=== PATIENT | female | born 1950 | race African-American/Black ===

== ENCOUNTER → 2017-04-06 | Outpatient (CLI) | payer OTHER ==
[~2017-04-06] MED LIST: AMLODIPINE BESY10 MG PO; ASPIRIN ENTERI325 M1 PO; CALCIUM 5001 TAB PO; COD LIVER OIL1 CAP PO; CORAL CALCIUM PO; CYANOCOBALAM1000 MCG PO; FLAX SEED OIL1000 M1 PO; HYDROCHLOROTHIA25 MG PO; IBUPROFEN800 MG PO; K-DUR20 ME2 PO; KCL PO; LEVOTHYROXINE112 MCG PO; MAG-OX 400400 M1 PO; MAGNESIUM250 M1 PO; MIRALAX17 GM PO; MULTIPLE VITAM1 EAC1 PO; SENOKOT S1 TA1 PO; SYNTHROID112 MCG PO; TRAMADOL HCL50 M2 PO; ULTRAM PO; VITAMIN B122500 MC1; VITAMIN D32000 UNI1 PO; VITAMIN D400 UNI2 PO; VOLTAREN75 MG PO; [UNRECOGNIZED DRUG - OTHER] PO
--- NOTE | ~2017-04-06 | CR63 ---
[facility] A Service of [facility] RADIOLOGY TEXT RESULTS PATIENT: JAE NIETO LOCATION: [facility] : [birth year] UNIT #: [id number] AGE: [address]: Edgar Valdovinos MD SEX: F ORDER DR: [id number] [facility] [address] [place], [place] [address] [id number] O MR#: [id number] Acc #: [id number] NAME: JAE NIETO : 1950 SEX: F STUDY DATE/TIME: 04/06/2017 1035 UNIT: [facility] ROOM: STUDY DESCRIPTION: CR Chest 2 View Attending Physician: Edgar Valdovinos M.D. Ordering Physician: Edgar Valdovinos M.D. Primary Care Physician: Tyrone Perez M.D. MEDICAL IMAGING REPORT This report is preliminary unless electronic signature is present EXAM Chest 2 views 04/06 17:10 1035 hours CLINICAL HISTORY 66-year-old for preop evaluation prior to right knee surgery. History of hypertension. COMPARISON 03/31/2016 FINDINGS Upright PA and lateral views of the chest demonstrate mild prominence of the cardiac silhouette with left heart enlargement. This is unchanged. Stable tortuous aorta. The lungs are clear and there are no effusions. IMPRESSION Mild cardiac enlargement unchanged from 03/31/2016. The lungs are clear and there are no effusions. Dictated by... Aurora Lang M.D. THIS IS AN ELECTRONICALLY VERIFIED REPORT Aurora Lang M.D. at 04/07/2017 9:27 AM Jame TD: 04/06/2017 17:57 JOB #: [id number] MEDICAL IMAGING REPORT Page 1 of 1 COPY
--- NOTE | ~2017-04-06 | CO ---
Unit #: [id number] #: [id number] Patient: JAE NIETO [id number] [address] [place], [place] [address] [id number] O MR#: [id number] NAME: JAE NIETO ROOM: Age: 66 Sex: F Admission Date: 04/06/2017 : 1950 Attending Physician: Edgar Valdovinos M.D. Primary Care Physician: Tyrone Perez M.D. Consultation Date: 04/06/2017 CONSULTATION REPORT REASON FOR CONSULTATION Preoperative medical evaluation prior to right total knee arthroplasty scheduled by Dr. Valdovinos for 04/18/17. HISTORY OF PRESENT ILLNESS The patient is a 66-year-old female who presents to preprocedural screening for the reason as indicated above. She reports having right knee swelling and "snapping," as well as sciatic pain secondary to uneven gait. She denies fever, chills. Denies chest, arm, neck, jaw or back pain or pressure. No shortness of air. No PND, dyspnea on exertion. No lightheadedness, dizziness, syncope, pre-syncope. No known history of obstructive sleep apnea. Denies history of myocardial infarction, congestive heart failure, TIA, CVA, diabetes or renal conditions. She does not see a materials clerk. She states she had a stress test performed approximately 30 years ago, and it was normal at that time. She has not been referred for further cardiology evaluation. She uses a cane when going up or down stairs to offer stability but does not need to use it when ambulating on flat ground. She has been evaluated by Dr. Valdovinos and scheduled for the above referenced procedure. PAST MEDICAL HISTORY 1. Osteoarthritis. 2. Hypertension. 3. Hypothyroidism. 4. Lactose intolerance. 5. History of diverticulitis and benign colon polyp removal per patient report. 6. Occasional tingling in fingers. 7. Health maintenance - Last dental visit was approximately 1 1/2 years ago. PAST SURGICAL HISTORY 1. Tubal ligation. 2. Hysterectomy. 3. Bilateral bunionectomy. 4. Left total knee arthroplasty. NOTE: The patient denies a personal or family history of complications to anesthesia. ALLERGIES No known drug allergies. Denies latex allergies. CURRENT MEDICATIONS Unit #: [id number] #: [id number] Patient: JAE NIETO 1. Hydrochlorothiazide 25 mg p.o. every morning. 2. Amlodipine besylate 10 mg p.o. every morning. 3. Diclofenac sodium EC 75 mg p.o. daily p.r.n. pain. 4. Multivitamin 1 tab p.o. daily. 5. Vitamin D3 - 2,000 unit tab p.o. daily, on hold. 6. Coral calcium capsule 1 cap p.o. daily. 7. Synthroid 112 mcg p.o. every morning. 8. Klor-Con 10 mEq p.o. every morning. 9. Magnesium 250 mg p.o. daily, on hold. 10. MiraLAX 17 grams p.o. dissolved in 8 ounces of water at bedtime. SOCIAL HISTORY Denies tobacco use. Drinks an ounce of bourbon on the weekends. Denies illicit drug use. FAMILY HISTORY Per review of Dr. Valdovinos's office note, mother had cancer. REVIEW OF SYSTEMS Patient reports 1 to 2+ bilateral lower extremity edema, somewhat relieved with elevation of extremities at night. A 10-point review of systems was conducted and otherwise negative except as indicated under history of present illness above. PHYSICAL EXAMINATION GENERAL: A 66-year-old female. Awake, alert, in no acute distress. VITAL SIGNS: Temperature 98.4, heart rate 62, respiratory rate 20, blood pressure 127/61, oxygen saturation 98% on room air. HEENT: Atraumatic, normocephalic. Sclerae anicteric. No discharge from eyes, ears or nares. LYMPH: No preauricular, postauricular, tonsillar, submental, anterior or posterior cervical, supra- or infraclavicular adenopathy. ENDOCRINE: No thyromegaly, thyroid nodules or tenderness. RESPIRATORY: Clear to auscultation in all caicedo bilaterally without wheezes, rhonchi or rales. CARDIOVASCULAR: S1, S2. Regular rate and rhythm without murmur or rub. GI: Bowel sounds positive x4. Soft, nontender, nondistended. EXTREMITIES: There is 1 to 2+ bilateral lower extremity edema without cyanosis or clubbing. NEUROLOGIC: Alert and oriented x3. Speech clear. Follows commands. DIAGNOSTIC STUDIES LABORATORY: WBC 3.7, hemoglobin 14.2, hematocrit 43.2, platelets 230,000. Sodium 141, potassium 3.6, chloride 101, CO2 28, glucose 102, BUN 6, creatinine 0.5, calcium 9.7, AST 22, ALT 19, alkaline phosphatase 58, bili total 0.5, total protein 7.1, albumin 4.4. PT 10.6, INR 1. Urinalysis negative with neither microscopic nor culture indicated. MRSA nasal swab report pending at this time. IMAGING: Two-view chest x-ray report pending at this time. CARDIOLOGY: Twelve-lead EKG - Preliminary tracing. Sinus bradycardia. Moderate voltage criteria for LVH, may be normal variant. Borderline ECG. ASSESSMENT/PLAN 1. The patient is a 66-year-old female who presents to preprocedural screening for preoperative medical evaluation prior to right total knee arthroplasty. The patient's Claire Revised Cardiac Risk Index Unit #: [id number] #: [id number] Patient: JAE NIETO is equal to 0.4%. This represents the patient's perioperative risk of fatal or nonfatal myocardial infarction, cardiopulmonary arrest, atrial and/or ventricular arrhythmias and pulmonary edema. This has been discussed in detail with the patient, and she wishes to proceed with surgery as scheduled at this time. 2. Hypertension. Blood pressure is stable. Will monitor blood pressure postoperatively and adjust medications and IV fluids accordingly. 3. Hypothyroidism. Will continue current dose of Synthroid, and patient will follow up with primary care physician post discharge. 4. Lactose intolerance. The patient has no issues in this regard today. 5. All the patient's other co-morbidities appear to be stable at this time. Thank you for allowing us to participate in the care of this patient. We will gladly follow for postop medical management pending order of Dr. Valdovinos. Patient has been advised to have a pre-op dental exam and cleaning. She has been given the telephone number to Drs. Kirit Franz and Bettye at [phone] to call for an appointment, as she does not have a regular dentist. Dictated by... Tl EmanuelRRhiannonN. for Con Camarillo M.D. CASTRO/juan josé TD: 04/07/2017 09:39 JOB #: [id number] CONSULTATION REPORT Page 1 of 1 X Charito Rincon APRN CONSULTATION REPORT
--- NOTE | ~2017-04-06 | EKG ---
PATIENT: JAE NIETO UNIT #: [id number] Ventricular Rate: 59 BPM Atrial Rate: 59 BPM P-R Interval: 166 ms QRS Duration: 64 ms Q-T Interval: 418 ms QTC Calculation(Bezet): 413 ms P [place]: 51 degrees Calculated T [place]: 5 degrees Diagnosis Line: Sinus bradycardia Diagnosis Line: Moderate voltage criteria for LVH, may be normal Diagnosis Line: variant Diagnosis Line: Borderline ECG Diagnosis Line: When compared with ECG of 31-MAR-2016 11:02, Diagnosis Line: No significant change was found Diagnosis Line: Confirmed by JULI RENNER MD ([id number]) on Diagnosis Line: 04/06/2017 2:03:02 PM INTERPRETING MD: JUD GIPSON
[2017-04-06 08:46] LABS: URINE APPEARANCE CLEAR; URINE BILIRUBIN NEG (NEG); URINE BLOOD NEG (NEG); URINE COLOR YELLOW; URINE GLUCOSE NEG (NEG); URINE KETONE NEG (NEG); URINE LEUKOCYTE ESTERASE NEG (NEG); URINE NITRATE NEG (NEG); URINE PROTEIN NEG (NEG); URINE SPECIFIC GRAVITY 1.005 (1.003-1.035); URINE UROBILINOGEN 0.2 MG/DL (NEG)
[2017-04-06 08:47] LABS: HEMATOCRIT 43.2 % (35.0-45.0); HEMOGLOBIN 14.2 gm/dL (12.0-16.0); MEAN CELL VOLUME 88.4 FL (83-96); MEAN CORPUSCULAR HGB CONC 32.8 g/dL (30-36); MEAN PLATELET VOLUME 8.3 FL (6.5-11.5); RED BLOOD COUNT 4.88 X10e (3.90-5.30); RED CELL DISTRIBUTION WIDTH 13.2 % (11.0-15.5); WHITE BLOOD COUNT 3.7 X10e3 (4.0-10.5)
[2017-04-06 08:49] LABS: URINE SOURCE CLEAN CATCH
[2017-04-06 08:50] LABS: CULTURE INDICATED? NO
[2017-04-06 08:59] LABS: PROTHROMBIN TIME (PATIENT) 10.6 SECONDS (9.6-11.5)
[2017-04-06 09:06] LABS: ALBUMIN SERUM 4.4 g/dL (3.5-5.0); BILIRUBIN,TOTAL 0.5 mg/dL (0.2-2.0); CALCIUM SERUM 9.7 mg/dL (8.4-10.2); CREATININE SERUM 0.5 mg/dL (0.6-1.4); GLOM FILT RATE Estimated 116.1 mL/min (>60); POTASSIUM 3.6 mmol/L (3.5-5.1); PROTEIN TOTAL SERUM 7.1 g/dL (6.0-8.3)
== END | disposition home or self-care (01) ==
LOC: CAMB 07:47
PROVIDERS: Orthopaedic Surgery
DX: Z01.818 Encounter for other preprocedural examination (principal); M17.11 Unilateral primary osteoarthritis, right knee; I10 Essential (primary) hypertension; I51.7 Cardiomegaly; E03.9 Hypothyroidism, unspecified; E73.9 Lactose intolerance, unspecified
CPT/HCPCS: 36415; 71020; 80053; 81003; 85027; 85610; 86850; 86900; 86901; 87070; 93005

== ENCOUNTER 2017-04-18 06:05 | Inpatient (IN) | payer OTHER ==
--- NOTE | ~2017-04-18 | OR ---
Unit #: [id number] #: [id number] Patient: JAE NIETO [id number] [address] [place], [place] [address] [id number] I MR#: [id number] NAME: JAE NIETO ROOM: [facility] Date of Procedure: 04/18/2017 Admission Date: 04/18/2017 Surgeon: Edgar Valdovinos M.D. : 1950 Attending Physician: Edgar Valdovinos M.D. Referring Physician: Edgar Valdovinos M.D. Primary Care Physician: Tyrone Perez M.D. OPERATIVE REPORT PREOPERATIVE DIAGNOSIS Primary localized osteoarthritis of the right knee. POSTOPERATIVE DIAGNOSIS Primary localized osteoarthritis of the right knee. PROCEDURE PERFORMED Right total knee. ASSISTANTS Sarai King and Valeriano Isaac. ANESTHESIA Adductor canal block plus general. ESTIMATED BLOOD LOSS About 100 mL. INDICATIONS FOR SURGERY This is a 66-year-old lady with severe pain in her right knee. She has had pain for months. It is getting progressively worse. It limits her walking or standing. The pain is aggravated by weightbearing. Her x-rays show she has ixzj-wi-cnap with subchondral sclerosis and periarticular osteophytes. She has tried injections and anti-inflammatories with no relief of her discomfort. DESCRIPTION OF PROCEDURE The patient was brought to the holding room, given 1 g of Ancef. This will be continued postop, but discontinued within 23 hours from the start time of surgery. She was then given an adductor canal block and brought back to the operating room, given a general anesthetic. Tourniquet placed around the right thigh. The right leg was prepped and draped in a sterile fashion. Tourniquet was inflated to 250. A straight anterior skin incision was made. The subcutaneous dissected away and a medial arthrotomy was performed. Patella was slid to the side. Osteophytes were removed from the femur. The intramedullary guide was used and 6 degree valgus cut was made on the distal femur. The femur was sized and found to be a size 3 from the [employer] knee system. The anterior-posterior cutting block was applied. Rotation was checked in the knee. Anterior and posterior cuts were made along with the chamfer cuts. Proximal tibial cut was made using a 0-degree cutting block. It was sized at 3 as well. Any posterior condylar osteophytes were removed. The remaining meniscal Unit #: [id number] #: [id number] Patient: JAE NIETO fragments debrided. Posterior capsule was injected with ropivacaine mixture as was the periosteum. Trial femur was applied. The drill holes were made for lugs on the femoral component. Trial tibia was applied with an 8 insert. The knee came to full extension and had good stability in extension and flexion. Rotation of the tibia was marked and the external alignment guide showed appropriate alignment of the limb. The patella was grasped with 2 towel clips, measured 24 mm thick, was cut smooth at 13 and a 38 patella was the appropriate size. The 3 drill holes were made. Trial patella applied and it tracked properly. We then removed all the trials. We used the drill and punch for the tibial tray. The knee was irrigated and dried while the cement was mixed. Then, all 3 components were cemented simultaneously. Once again, it was a size 3 femur cruciate retaining, size 3 all poly tibia, 8 mm thick, and a 38 patella from the [employer] knee system. Any excess cement was removed and after the cement was hardened, the tourniquet was released. Hemostasis was obtained. The rest of the ropivacaine mixture injected. The knee was irrigated with a dilute Betadine solution and bacitracin and closed using 0 Ethibond in the arthrotomy, 0 and 2-0 Vicryl in the subcutaneous, and kalani in the skin. optometry assistant, Sarai King was present throughout the entire case. Dictated by... Key Guaman/hortencia TD: 04/20/2017 07:25 JOB #: [id number] OPERATIVE REPORT Page 1 of 1 X Edgar Valdovinos MD PROCEDURE OPERATIVE NOTE
--- NOTE | ~2017-04-18 | DS ---
Unit #: [id number] #: [id number] Patient: JAE LEONE [id number] [address] [address] [id number] I MR#: [id number] NAME: JAE LOENE ROOM: [facility] Age: 66 Sex: F Admission Date: 04/18/2017 : 1950 Discharge Date: 04/20/2017 Attending Physician: Edgar Valdovinos M.D. Referring Physician: Edgar Valdovinos M.D. Primary Care Physician: Tyrone Perez M.D. DISCHARGE SUMMARY ADMITTING DIAGNOSIS Right knee osteoarthritis. DISCHARGE DIAGNOSIS Right knee osteoarthritis. HOSPITAL COURSE On 04/18/2017, Ms. Leone underwent a right total knee arthroplasty. She tolerated the procedure well. She was transported to the fourth floor where she underwent physical therapy, medical management and anticoagulation therapy. She is doing well and is ready to be discharged. DISPOSITION Stable, discharged to the [facility]. MEDICATIONS ON DISCHARGE Include her routine home meds in addition to Ultram 50 mg one to two tablets p.o. q.4 hours p.r.n. for pain and aspirin 325 mg p.o. b.i.d. FOLLOWUP AND INSTRUCTIONS 1. Ms. Leone is going to be discharged to [facility]. 2. The patient is on aspirin for DVT prophylaxis. This will be continued for four weeks. 3. Physical therapy is to be done for active range of motion, strengthening and progressive ambulation. 4. The patient will be on a walker for four weeks and a cane for an additional two weeks. 5. Followup appointment with Dr. Valdovinos is in six weeks. Please call our office for that appointment date and time. Dictated by... Andres PereiraARhiannonC. for Edgar Valdovinos M.D. Laura TD: 04/21/2017 09:31 JOB #: [id number] Unit #: [id number] #: [id number] Patient: JAE LEONE DISCHARGE SUMMARY Page 1 of 1 X Sarai King DISCHARGE SUMMARY
[~2017-04-18 06:05] MED LIST changes: -MAG-OX 400400 M1 PO; -ULTRAM PO
[2017-04-18 06:55] LABS: PROTHROMBIN TIME (PATIENT) 10.5 SECONDS (9.6-11.5)
[2017-04-19 03:26] LABS: HEMATOCRIT 33.3 % (35.0-45.0)
[2017-04-19 03:48] LABS: CALCIUM SERUM 8.8 mg/dL (8.4-10.2); CREATININE SERUM 0.5 mg/dL (0.6-1.4); GLOM FILT RATE Estimated 116.1 mL/min (>60); MAGNESIUM 1.8 mg/dL (1.6-3.0)
[2017-04-19 04:25] LABS: POTASSIUM 2.9 mmol/L (3.5-5.1)
[2017-04-20 03:13] LABS: HEMOGLOBIN 10.4 gm/dL (12.0-16.0)
[2017-04-20 03:34] LABS: CALCIUM SERUM 8.6 mg/dL (8.4-10.2); CREATININE SERUM 0.4 mg/dL (0.6-1.4); GLOM FILT RATE Estimated 124.9 mL/min (>60); MAGNESIUM 1.9 mg/dL (1.6-3.0); POTASSIUM 3.3 mmol/L (3.5-5.1)
[2017-04-21] MEDS ORDERED: ULTRAM PO (16:03)
[2017-04-21] MEDS ORDERED: MAG-OX 400400 M1 PO (16:04)
[2017-04-21] MEDS ORDERED: ASPIRIN ENTERI325 M1 PO (16:04)
== END 2017-04-21 16:51 | disposition home health service (06) | DRG 470 ==
LOC: CSUR 06:05 → CPACUOF 07:00 → CSUR 07:30 → CPACUOF 08:17 → CSUR 08:17 → C4B 08:17 → CPACUOF 10:04 → C4B 04-21 16:51
PROVIDERS: Nurse Practitioner; Orthopaedic Surgery
PROC: 0SRC0J9 Replacement of Right Knee Joint with Synthetic Substitute, Cemented, Open Approach (ICD-10-PCS; principal; 2017-04-18 07:30)
DX: M17.11 Unilateral primary osteoarthritis, right knee (principal); D62 Acute posthemorrhagic anemia; I10 Essential (primary) hypertension; E87.6 Hypokalemia; R73.9 Hyperglycemia, unspecified; T38.0X5A Adverse effect of glucocorticoids and synthetic analogues, initial encounter; Y92.9 Unspecified place or not applicable; E03.9 Hypothyroidism, unspecified; E73.9 Lactose intolerance, unspecified; Z90.710 Acquired absence of both cervix and uterus; Z98.51 Tubal ligation status; Z96.652 Presence of left artificial knee joint; Z86.010 Personal history of colon polyps
CPT/HCPCS: 80048; 83735; 84132; 85014; 85018; 85610; 94760; 97110; 97116; 97161; 97530; C1776; G8978-GP; G8979-GP; G8980-GP; J0131; J0171; J0690; J0735; J1100; J1170; J1885; J2250; J2405; J2795; J3010